=== PATIENT | male | born 1965 | race Caucasian/White ===

== ENCOUNTER 2016-10-03 06:09 | Day surgery (SDC) | payer OTHER ==
[~2016-10-03] VITALS: Ht 160 cm; Wt 98.0 kg
[2016-10-03 07:15] VITALS: Ht 160 cm; Wt 98.0 kg
[2016-10-03] MEDS ORDERED: atorvastatin PO (07:20)
[2016-10-03] MEDS ORDERED: atenolol PO (07:20)
[2016-10-03] MEDS ORDERED: LIDOCAINE 2% (SDV) 5 ML INJ ONE (07:30)
[2016-10-03] MEDS ORDERED: PROPOFOL 40 ML ONE (07:30)
[2016-10-03 07:49] VITALS: BP 114/67; PULSE 60; RESP 16
--- NOTE | 2016-10-03 08:30 | GILP ---
DATE OF PROCEDURE: NAME OF PROCEDURE: Colonoscopy and biopsy. SURGEON: Ravi Pena MD PREOPERATIVE DIAGNOSIS: Positive occult blood in the stool. POSTOPERATIVE DIAGNOSES: 1. Colonoscopy all the way to the cecum. 2. Multiple sigmoid colon polyps were removed using the biopsy forceps. 3. Diverticulosis of the colon. 4. Internal hemorrhoids. INDICATION FOR THE PROCEDURE: Mr. Keily Guzman is a 50-year-old male patient who was noted to have positive occult blood in the stool. The patient was scheduled for colonoscopy for further evaluati on. The procedure and possible complications were well explained to the patient. He understood and cons ented to the procedure. DESCRIPTION OF PROCEDURE: Under the influence of anesthesia the colonoscope was carefully introduce d in the rectum and under direct vision it was advanced all the way to the cecum. FINDINGS: The patient had multiple sigmoid colon polyps and they were removed using the biopsy forc eps. He was noted to have diverticulosis of the colon and internal hemorrhoids. He tolerated the procedure very well and there was no complication from the procedure. At the end o f the procedure he was awake with stable vital signs and he was discharged home to the care of his [facility]. IMPRESSION: 1. Colonoscopy all the way to the cecum. 2. Multiple sigmoid colon polyps were removed using the biopsy forceps. 3. Diverticulosis of the colon. 4. Internal hemorrhoids. PLAN: 1. Await histopathology report. 2. Next screening colonoscopy in 5 years. Dictated By: RAVI KUNZ/LUIS M Conf#: [id number] DID#: [id number]
[2016-10-03 08:40] VITALS: BP 108/63; PULSE 60; RESP 18
== END 2016-10-03 08:55 | disposition home or self-care (01) ==
LOC: GIL 06:09
PROVIDERS: ATTEND Internal Medicine Gastroenterology
DX: D12.5 Benign neoplasm of sigmoid colon (principal); K57.90 Diverticulosis of intestine, part unspecified, without perforation or abscess without bleeding; I10 Essential (primary) hypertension; E78.5 Hyperlipidemia, unspecified; E66.9 Obesity, unspecified; Z68.38 Body mass index [BMI] 38.0-38.9, adult
CPT/HCPCS: 45380; 88305; Z7610